=== PATIENT | male | born 1950 | race Caucasian/White ===

== ENCOUNTER 2017-01-17 08:56 | Outpatient (CLI) | payer MEDICARE, OTHER ==
[2016-03-09 11:45] VITALS: BP 122/83
--- NOTE | 2017-01-17 14:34 | OP Clinic Progress Note ---
REASON FOR VISIT: This 66-year-old man is seen in follow up of a right ear large abscess. Yesterday, under local anesthetic and under a microscope, I opened and drained that and placed aminoglycoside drops and antifungal lotion. There was packed and expanding ear wick. In the interim, the patient has had much less pain and discomfort. Today, I removed the wick from the ear. The abscess site has significantly settled down. I used #3 and #5 suctions to irrigate, re-debride, and clean the ear. Again, there is absolutely no perforation of the eardrum. I checked yesterday and again today. I placed gentamicin ophthalmic drops and Lotrisone antifungal lotion. Cotton is left in the ear for 24 hours. PLAN: I asked the patient to return in 2 weeks and to keep the hearing aid out in the interim. cc: Dr. Cornelius HORTON
== END 2017-01-17 09:00 ==
LOC: ENT 08:56
PROVIDERS: ATTEND Otolaryngology
DX: H66.41 Suppurative otitis media, unspecified, right ear (principal)
CPT/HCPCS: 69220

== ENCOUNTER 2017-01-31 14:26 | Outpatient (CLI) | payer MEDICARE, OTHER ==
[2016-03-09 11:45] VITALS: BP 122/83
--- NOTE | 2017-02-02 09:23 | OP Clinic Progress Note ---
REASON FOR VISIT: This 66-year-old man is seen after several clinic visits with a severe right- sided otitis externa. This ear has been cleaned out twice under the microscope and debrided. He was initially treated with antifungal drops. There was some granulation tissue on the eardrum. He has used some gentamicin ophthalmic drops in the interval. His ear feels much better and his hearing generally is improved. He has kept the hearing aid out of the right ear. There is no perforation of the eardrum. PLAN: At this point, I would like him to still keep the hearing aid out. Although it is markedly improved, there is still micro-residue. I have changed him over and asked him to use 91% alcohol drops once a day and I will re-evaluate him in about a month for the plan going forward to reduce the probability of recurrence. cc: Dr. Cornelius HORTON
== END 2017-01-31 14:27 ==
LOC: ENT 14:26
PROVIDERS: ATTEND Otolaryngology
DX: H60.91 Unspecified otitis externa, right ear (principal)
CPT/HCPCS: 69210; G0463

== ENCOUNTER 2017-02-14 07:41 | Outpatient (CLI) | payer MEDICARE, OTHER ==
[2016-03-09 11:45] VITALS: BP 122/83
[2017-02-14 08:28] LABS: BASOPHILS % 0.2 (0.0-1.5); EOSINOPHILS % 2.3 % (0.0-6.8); MEAN CORPUSCULAR HEMOGLOBIN 29.5 pg (28.0-34.0); MEAN CORPUSCULAR VOLUME 89.3 fl (80.0-100.0); MONOCYTES % 4.9 % (0.0-11.0); NEUTROPHILS # 9.3 # k/uL (1.4-7.7)
[2017-02-14 08:51] LABS: eGFR (African) > 60; eGFR (Non-African) > 60
== END 2017-02-14 07:42 ==
LOC: LAB 07:41
PROVIDERS: ATTEND Orthopaedic Surgery
DX: I10 Essential (primary) hypertension (principal); R73.9 Hyperglycemia, unspecified; M75.101 Unspecified rotator cuff tear or rupture of right shoulder, not specified as traumatic; Z01.818 Encounter for other preprocedural examination
CPT/HCPCS: 36415; 80053; 80061; 83036; 85025

== ENCOUNTER 2017-03-07 13:51 | Outpatient (CLI) | payer MEDICARE, OTHER ==
[2016-03-09 11:45] VITALS: BP 122/83
--- NOTE | 2017-03-08 11:54 | OP Clinic Progress Note ---
REASON FOR VISIT: [place] is seen in follow up of his right-sided fungal otitis externa and severe dermatitis. He has had several debridements in the clinic and antifungal medications placed. Since the last visit, he has been using the hearing aid in the right ear about 2 hours a day versus all day. He also used plain 91% rubbing alcohol irrigations. Overall, the ear canal looks fairly good. There are several spots of the recurrent fungal infection and I re-debrided these. PLAN: I have asked him to stick with the same plan another couple of months and use the alcohol irrigations once a day and use the hearing aid sparingly at 1 to 3 hours a day. I will see him back and see if we are able to maintain the improvement over the next 2 months. cc: Dr. Cornelius HORTON
== END 2017-03-07 14:12 ==
LOC: ENT 13:51
PROVIDERS: ATTEND Otolaryngology
DX: H60.91 Unspecified otitis externa, right ear (principal); L30.9 Dermatitis, unspecified
CPT/HCPCS: G0463

== ENCOUNTER 2017-04-25 13:30 | Outpatient (CLI) | payer MEDICARE, OTHER ==
[2016-03-09 11:45] VITALS: BP 122/83
--- NOTE | 2017-04-26 10:21 | OP Clinic Progress Note ---
REASON FOR VISIT: [place] is seen in follow up of his right ear severe otitis externa. At last clinic visit about 2 months ago, I debrided and cleaned the ear and antifungal medicine was placed. He has been using alcohol drops in the right ear and principally leaving the hearing aid out of the right ear. Under the microscope, he still has some debris and some fairly non-infected desquamated skin of the ear canal. Under the microscope, I re-debrided and cleaned this and there is some improved hearing additionally. PLAN: I think he should continue using the alcohol drops. I gave the option of either 3 times a week or continuing once a day and he felt it was simply easier to do it once a day and continue doing that for about 2 months and I will recheck his ear. He will still try to leave the hearing aid out of the right ear. Overall, the health of the ear canal and the eardrum has gotten significantly improved. He hears better than when he had the hearing aid in and the ear canal disease. Of note, he is coming along fairly well from a right rotator cuff surgery that he has had fairly recently. cc: Dr. Cornelius HORTON
== END 2017-04-25 13:32 ==
LOC: ENT 13:30
PROVIDERS: ATTEND Otolaryngology
DX: H60.91 Unspecified otitis externa, right ear (principal)
CPT/HCPCS: G0463

== ENCOUNTER 2017-05-02 11:39 | Day surgery (SDC) | payer MEDICARE, OTHER ==
[2016-03-09 11:45] VITALS: BP 122/83
--- NOTE | 2017-05-02 11:41 | History and Physical Report ---
CHIEF COMPLAINT/HISTORY AND PHYSICAL: This 66-year-old male is admitted for surgery on the mass overlying his mastoid bone on the right side. He has debridement and cleaning of his ear canals and this does not seem to be related. His eardrums are otherwise unremarkable. The mass has been there and it is slowly growing over a year or two. PAST MEDICAL HISTORY /REVIEW OF SYSTEMS: 1. He has a history of a cholesteatoma. 2. History of skin cancer. 3. History of high blood pressure. ALLERGIES TO MEDICATIONS: None. MEDICATIONS: Lisinopril. PHYSICAL EXAMINATION: General: He is an alert, mesomorphic male otherwise in no acute distress. HEENT: He has bilateral hearing aids. He has otitis externa. He has a mass overlying the mastoid on the right that is about 2.5 cm. Heart: Regular rhythm without murmurs, clicks, rubs, heaves or thrills. Abdomen: Mesomorphic and benign. Neurologic: Grossly intact. Extremities: Normal range of movement with not edema, clubbing, cyanosis or deformity. Rectal Exam: Deferred. IMPRESSION: 1. Tumor. 2. Right mastoid lipoma. PLAN: Excision of soft tissue mass on the right side. Risks, problems, complications , recurrence, need for additional medications and surgery, pain, scar, and multiple other issues were covered. The patient states that he understands. His is there and she states she understands. He chooses and requests to go ahead with the surgery. SOL
[2017-05-02] MEDS ORDERED: LACTATED RINGERS 1,000 ML IV.SOLN IV ONE (13:00)
[2017-05-02] MEDS ORDERED: SALINE FLUSH 10 ML DISP.SYRIN IVF ONE (13:00)
[2017-05-02] MEDS ORDERED: PROPOFOL 200 MG/20 ML VIAL IV ONE (13:00)
[2017-05-02] MEDS ORDERED: ACETAMINOPHEN 1,000 MG/100 ML INJ IV ONE (13:00)
[2017-05-02] MEDS ORDERED: fentaNYL CITRATE/PF 100 MCG/ 2ML AMP ONE (13:00)
[2017-05-02] MEDS ORDERED: LIDOCAINE 1%/EPINEPHRINE 20ML VIAL IJ ONE (13:00)
--- NOTE | 2017-05-09 10:28 | Operative Note ---
SURGEON: Oliver Flor MD ANESTHESIA: Local anesthesia. PREOPERATIVE DIAGNOSIS: Right mastoid area mass. POSTOPERATIVE DIAGNOSIS: Right mastoid area mass. PROCEDURE PERFORMED: Excision of right mastoid area mass of 3 cm. INDICATIONS FOR PROCEDURE: Risk, problems, complications, bleeding, infection, need for additional surgery , scar, pain, and multiple other issues were covered. I believe he has a good understanding and chooses to go ahead with the procedure. PROCEDURE IN DETAIL: Patient was taken to the operating room where he was given IV sedation and local anesthetic of 1:100,000 epinephrine mixed with Xylocaine. After the local injection and being prepped and draped in a sterile fashion, the incision was made along the curvilinear vertical axis. Loupe magnification was used. Very careful and tedious dissection was carried out using either a sharp scissors or cautery on 10. The mass was indenting into the mastoid. It was carefully teased out and clinically removed in total. The area was cleaned with alcohol. The incision was closed in layers with interrupted 4-0 chromic sutures and then 3-0 Prolene was taken through the skin in a horizontal mattress fashion into some of the fibrous tissue overlying the mastoid. This was done to try to obliterate the space and a sterile dressing was applied. He tolerated the procedure well with the sedation of local anesthesia. cc: Dr. Cornelius HORTON
== END 2017-05-02 11:40 ==
LOC: OPSURG 11:39
PROVIDERS: ATTEND Otolaryngology
DX: R22.1 Localized swelling, mass and lump, neck (principal); H95 Intraoperative and postprocedural complications and disorders of ear and mastoid process, not elsewhere classified; I10 Essential (primary) hypertension; Z85.828 Personal history of other malignant neoplasm of skin
CPT/HCPCS: 21555; J2704; J3010; J7030; J7120; S1016

== ENCOUNTER 2017-05-09 14:07 | Outpatient (CLI) | payer MEDICARE, OTHER ==
[2016-03-09 11:45] VITALS: BP 122/83
--- NOTE | 2017-05-11 09:45 | OP Clinic Progress Note ---
REASON FOR VISIT: [place] is seen in follow up from an excision of a lipoma that was overlying his right mastoid. We removed alternate sutures today and I will remove alternate sutures next week. These are 3-0 Prolene sutures. He notes some sore spots that are on the scalp, more in the occipital part. He does have some folliculitis and there is a little bit of a superficial infection around the sutures that may be associated with some of the folliculitis that he has on different parts of his scalp. PLAN: I recommended Nizoral Shampoo for some fungi and a short-course of Septra DS. cc: Dr. Cornelius HORTON
== END 2017-05-09 14:10 ==
LOC: ENT 14:07
PROVIDERS: ATTEND Otolaryngology
DX: D17.0 Benign lipomatous neoplasm of skin and subcutaneous tissue of head, face and neck (principal); Z48.89 Encounter for other specified surgical aftercare
CPT/HCPCS: G0463

== ENCOUNTER 2017-05-16 13:54 | Outpatient (CLI) | payer MEDICARE, OTHER ==
[2016-03-09 11:45] VITALS: BP 122/83
--- NOTE | 2017-05-18 13:19 | OP Clinic Progress Note ---
REASON FOR VISIT: [place] is seen in follow up from an excision of a right mastoid area lipoma that was done in [place]. I took out the remainder of the stitches. He still has a small opening in the lower fourth of the wound that is healing nicely. The patient has no complaints. PLAN: I will simply look at the patient's face again and have him continue to clean the area as he has and I will see him back in about 2 weeks. cc: Dr. Cornelius HORTON
== END 2017-05-16 13:55 ==
LOC: ENT 13:54
PROVIDERS: ATTEND Otolaryngology
DX: D17.0 Benign lipomatous neoplasm of skin and subcutaneous tissue of head, face and neck (principal)
CPT/HCPCS: G0463

== ENCOUNTER 2017-05-30 15:30 | Outpatient (CLI) | payer MEDICARE, OTHER ==
[2016-03-09 11:45] VITALS: BP 122/83
--- NOTE | 2017-06-04 10:26 | OP Clinic Progress Note ---
REASON FOR VISIT: [place] is seen in follow up of his right mastoid area from deep lipoma excision. The incision site overall is healing well. The wound was extremely deep as the lipoma was wrapped around under the mastoid tip and at the very inferior aspect of this, it looks like opening of the wound, but it is just slowly healing nicely and cleanly. Under the microscope, I simply debrided and cleaned some small crusty material. Underneath all this, it looks clean and fresh with no evidence of infection. PLAN: The patient does not need to do any special cleaning of this or treating it in any way. It is just healing slightly slowly but in a very healthy way. I will simply re-look at that in 3 or 4 weeks. cc: Dr. Cornelius HORTON
== END 2017-05-30 15:32 ==
LOC: ENT 15:30
PROVIDERS: ATTEND Otolaryngology
DX: D17.9 Benign lipomatous neoplasm, unspecified (principal); Z48.89 Encounter for other specified surgical aftercare
CPT/HCPCS: G0463

== ENCOUNTER 2017-07-04 13:29 | Outpatient (CLI) | payer MEDICARE, OTHER ==
[2016-03-09 11:45] VITALS: BP 122/83
--- NOTE | 2017-07-05 10:57 | OP Clinic Progress Note ---
REASON FOR VISIT: This is a check on an excision of a right mastoid area lipoma done on April. In the interval since the last visit, the mastoid area incision line has healed completely. The patient denies any pain or discomfort or drainage. The second issue, he had a right-sided otitis externa. By microscopic otoscopy , the ear canal and the eardrum have no active disease. He has a small retraction pocket in the notch of Rivinus. It is open and clear and there is no active infection. PLAN: [place] needs no further follow up here. He states that he feels well and fine. He is to return to the continued care of Dr. Cornelius Patrick. cc: Dr. Cornelius HORTON
== END 2017-07-04 13:30 ==
LOC: ENT 13:29
PROVIDERS: ATTEND Otolaryngology
DX: H60.91 Unspecified otitis externa, right ear (principal)
CPT/HCPCS: G0463

== ENCOUNTER 2017-11-28 15:08 | Outpatient (CLI) | payer MEDICARE, OTHER ==
[2016-03-09 11:45] VITALS: BP 122/83
--- NOTE | 2017-11-30 15:03 | OP Clinic Progress Note ---
REASON FOR VISIT: Mr. Conte is a 67-year-old man with a prior history of both otitis externa and a right postauricular sub-mastoid lipomatous mass. He had surgery and has done well. He comes more with a dermatologic and scalp problem. In the past, I gave him a course of sulfa, Septra DS 1 twice a day and that seemed to make a big difference. I have also had him try at a separate time some Nizoral shampoo that he felt did not make any difference. He has presented this problem to a boring mill operator for metal who did not seem to have much of a result. PLAN: He does have some scaly irritations there. So the discussion was what he should do over the long run and I simply do not have an answer. Over the short run, I gave him another course of Septra DS twice a day for 10 days. I suggested that he go back and see the boring mill operator for metal. I asked him if he does, he should understand the information that taking an antibiotic that is a sulfa-type of antibiotic has improved and antifungal shampoos have not. cc: Dr. Cornelius HORTON
== END 2017-11-28 15:10 ==
LOC: ENT 15:08
PROVIDERS: ATTEND Otolaryngology
DX: H60.93 Unspecified otitis externa, bilateral (principal); L21.9 Seborrheic dermatitis, unspecified
CPT/HCPCS: G0463

== ENCOUNTER 2018-01-24 07:49 | Outpatient (CLI) | payer MEDICARE, OTHER ==
[2016-03-09 11:45] VITALS: BP 122/83
[2018-01-24 16:56] LABS: TOTAL PROTEIN 6.8 g/dL (6.0-8.5)
== END 2018-01-24 07:50 ==
LOC: LAB 07:49
PROVIDERS: ATTEND Family Medicine
DX: I10 Essential (primary) hypertension (principal); R73.9 Hyperglycemia, unspecified
CPT/HCPCS: 36415; 80053; 80061; 83036

== ENCOUNTER 2018-03-29 11:05 | Outpatient (CLI) | payer MEDICARE, OTHER ==
[2016-03-09 11:45] VITALS: BP 122/83
[2018-03-29 11:34] LABS: BASOPHILS % 0.8 (0.0-1.5); EOSINOPHILS % 1.8 % (0.0-6.8); MEAN CORPUSCULAR HEMOGLOBIN 29.1 pg (28.0-34.0); MONOCYTES % 9.2 % (0.0-11.0); NEUTROPHILS # 7.5 # k/uL (1.4-7.7)
[2018-03-29 11:59] LABS: eGFR (Non-African) > 60
--- NOTE | 2018-03-29 19:01 | Diagnostic Imaging Report ---
ONESIMO VAZQUEZ [facility] [address] [facility] [address] [id number] Report Submission Date: Mar 29, 2018 2:58:22 PM BEAVER TRAPPER Patient Study Name: SANJANA MCCALL Date: Mar 29, 2018 11:38:40 AM BEAVER TRAPPER Modality Type: DX Gender: M Description: ABDOMEN : 46 Institution: [facility] Physician: ONESIMO VAZQUEZ Examination: Obstruction series History: Abdominal discomfort Findings: 4 views obtained of the chest and abdomen. Prominent loops of mid abdominal bowel - up to 4.4 cm. Stool within the large bowel. Osseous degenerative changes. No focal lung consolidated process or blunting of the costophrenic margins. Impression: Prominent mid abdominal bowel loops: ileus versus possible obstruction. Recommend obtaining CT Abdomen/pelvis to further evaluate. Electronically signed on Mar 29, 2018 2:58:22 PM BEAVER TRAPPER by: Richard HORTON
== END 2018-03-29 11:10 ==
LOC: LAB 11:05
PROVIDERS: ATTEND Nurse Practitioner Family
DX: R10.84 Generalized abdominal pain (principal)
CPT/HCPCS: 36415; 74022; 80053; 83690; 85025

== ENCOUNTER 2018-03-29 16:05 | Outpatient (CLI) | payer MEDICARE, OTHER ==
[2016-03-09 11:45] VITALS: BP 122/83
--- NOTE | 2018-03-29 18:49 | Diagnostic Imaging Report ---
ONESIMO VAZQUEZ [facility] [id number] [facility].[address] [id number] Report Submission Date: Mar 29, 2018 6:26:04 PM CONTAINER FINISHING INSPECTOR Patient Study Name: SANJANA MCCALL Date: Mar 29, 2018 4:36:22 PM CONTAINER FINISHING INSPECTOR Modality Type: CT\SR Gender: M Description: CT ABD PELVIS W/ CON : 46 Institution: [facility] Physician: ONESIMO VAZQUEZ CT abdomen and pelvis with contrast History: Hematochezia. Nausea, vomiting and diarrhea Technique: Helically acquired images were obtained from the hemidiaphragms to the pelvic floor following IV but no oral contrast. Findings: The liver, spleen, gallbladder, pancreas, adrenal glands and right kidney are unremarkable. There is a subcentimeter cyst of the left kidney. The abdominal aorta is mildly atherosclerotic but not aneurysmal. There are multiple abnormally dilated loops of proximal and mid small bowel. There are a few normal caliber distal small bowel loops. These findings are consistent with a small-bowel obstruction although the precise transition point is not detected. The appendix is visualized and is normal. There is air and stool in the colon. Diverticula are present throughout the descending and sigmoid colon but there is no evidence for active diverticulitis. The prostate gland is borderline in size. The bladder and seminal vesicles are unremarkable. There is no free fluid in the abdomen or pelvis. There is a calcified granuloma at the left lower lobe. The right lung base is clear. No free air is seen. Impression: Not mentioned above, the stomach is distended with fluid but the stomach is not thick-walled. There are multiple abnormally dilated loops of proximal and mid small bowel. These findings are consistent with a mid to distal small-bowel obstruction although the exact site of transition cannot be clarified. Normal appendix. No free air or free fluid in the abdomen. Diverticulosis throughout the descending and sigmoid colon. Electronically signed on Mar 29, 2018 6:26:04 PM CONTAINER FINISHING INSPECTOR by: Lizet HORTON
== END 2018-03-29 16:06 ==
LOC: RAD 16:05
PROVIDERS: ATTEND Nurse Practitioner Family
DX: K57.32 Diverticulitis of large intestine without perforation or abscess without bleeding (principal)
CPT/HCPCS: 74177; Q9967

== ENCOUNTER 2018-09-09 15:00 | Outpatient (CLI) | payer MEDICARE, OTHER ==
[2016-03-09 11:45] VITALS: BP 122/83
== END 2018-09-09 15:05 | disposition home or self-care (01) ==
LOC: RAD 15:00
PROVIDERS: ATTEND Family Medicine
DX: R20.0 Anesthesia of skin (principal)
CPT/HCPCS: 70450

== ENCOUNTER 2019-03-12 09:16 | Outpatient (CLI) | payer MEDICARE, OTHER ==
[2016-03-09 11:45] VITALS: BP 122/83
[2019-03-12 10:50] LABS: A1C 5.4 % (<5.7); HDL 36 mg/dL (>40); eGFR (Non-African) > 60
[2019-03-12 11:01] LABS: APPEARANCE,URINE CLEAR (CLEAR); COLOR,URINE YELLOW (YELLOW)
[2019-03-12 11:02] LABS: OCCULT BLOOD,URINE 1+ (NEGATIVE); UROBILINOGEN URINE 0.2 Eu (0.2-1.0)
== END 2019-03-12 09:21 ==
LOC: LAB 09:16
PROVIDERS: ATTEND Family Medicine
DX: I10 Essential (primary) hypertension (principal); R73.9 Hyperglycemia, unspecified; R10.2 Pelvic and perineal pain
CPT/HCPCS: 36415; 80053; 80061; 81002; 83036